=== PATIENT | male | born 1935 | race Caucasian/White ===

== ENCOUNTER 2016-11-29 13:46 | Inpatient (IN) ==
[2016-11-29] MEDS ORDERED: Naloxone 0.4 MG/ML INJ IVP PRN (20:56)
[2016-11-29] MEDS ORDERED: Ondansetron 4 MG/2 ML VIAL IVP PRN (20:56)
[2016-11-29] MEDS ORDERED: Acetaminophen 325 MG TABLET PO PRN (20:56)
[2016-11-29] MEDS ORDERED: Famotidine 20 MG TABLET PO SCH (21:00)
[2016-11-29 21:46] LABS: Basophils % 0.2 %; Hemoglobin 8.2 g/dL (12.9-16.9); Immature Granulocytes % 0.2 % (0-4); Mean Corpuscular Volume 100.4 fL (83.0-100.0)
[2016-11-29 21:48] LABS: Eosinophils # 0.1 K/mcL (0.0-0.6); Eosinophils % 2.4 %; Hematocrit 24.4 % (37.5-50.1); INR 1.3; Immature Platelets 7.4 % (1.1-6.1); Lymphocytes # 1.1 K/mcL (0.6-4.6); Lymphocytes % 26.3 %; Mean Corpuscular HGB Conc 33.6 g/dL (31.6-35.5); Mean Corpuscular Hemoglobin 33.7 pg (28.0-33.3); Monocytes # 0.3 K/mcL (0.0-1.3); Neutrophils # 2.7 K/mcL (1.6-8.9); Prothrombin Time 14.1 Seconds (9.4-12.1); Red Blood Count 2.43 M/mcL (4.19-5.50); Red Cell Distribution Width 23.6 % (11.5-14.5); Segmented Neutrophils % 64.9 %
[2016-11-29 21:50] LABS: Activated Partial Thrombo Time 28.7 Seconds (26.0-36.0)
[2016-11-29 21:58] LABS: Alanine Aminotransferase 18 Units/L (0-55); Albumin 3.9 g/dL (3.5-5.0); Albumin/Globulin Ratio 1.4 (1.1-2.2); Alkaline Phosphatase 65 Units/L (38-126); Aspartate Amino Transferase 22 Units/L (5-34); BUN/Creatinine Ratio 19 (6-26); Bilirubin,Total 1.7 mg/dL (0.2-1.2); Blood Urea Nitrogen 18 mg/dL (8-26); Calcium 9.1 mg/dL (8.6-10.8); Carbon Dioxide 22 mEq/L (19-29); Chloride 110 mEq/L (98-109); Globulin 2.8 g/dL (2.4-3.5); Glucose 101 mg/dL (70-99); Osmolality,Calculated 290 (280-300); Potassium 3.9 mEq/L (3.5-4.5); Sodium 139 mEq/L (136-145); Total Protein 6.7 g/dL (6.0-8.3); eGFR For African Americans > 60 (> 60); eGFR For Non-African Americans > 60 (> 60)
--- NOTE | 2016-11-29 22:24 | Internal Med History&Physical ---
Date of Encounter: 11/29/16 Time of Encounter: 20:00 Assessment and Plan (1) Pancytopenia Current visit: No Status: Acute 1. Will check labs, type and cross blood, and plan to transfuse platelets in the morning. 2. I consulted and spoke with Dr. Kidd (Hem/ONC) who will see patient in the morning. She requested platelet transfusion in the morning in preparation for bone marrow biopsy. 3. Will follow labs and transfuse otherwise if necessary. 4. Will check B12 and Folate levels. (2) Hypertension Current visit: No Status: Chronic 1. Continue home meds as appropriate and monitor BP. Qualifiers: Hypertension type: essential hypertension Qualified Code(s): I10 - Essential (primary) hypertension (3) DVT prophylaxis Current visit: Yes Status: Acute 1. EPCD's. 2. No anticoagulation due to thrombocytopenia and bleeding risk. Internal Medicine - H&P: HPI Chief complaint: symptomatic anemia; transfer from [place] Admitted From: Direct Admit Plans for Post Hospital Care: Home History of present illness: Mr. Mclean is a 81 year old male who was transferred here from [facility] today for hematology consultation. He presented there last night with complaints of symptomatic anemia. He was short of breath, lightheaded, and dizzy. He received 2 units packed red blood cell transfusion with subsequent improvement. He has a history of macrocytic anemia for several years, but it has worsened significantly in the last few weeks. He has not had any B12 or folate deficiency in the past. He has been using Ibuprofen 600 mg BID for the last few weeks for plantar fasciitis. He has had no GI blood loss. He had colonoscopy several years ago which was reportedly normal. He denies any abnormal bruising, bleeding, or rashes. 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 His most recent labs last week revealed the severe anemia and thrombocytopenia (6.8 and 18K respectively) whereas his baseline hgb has been around 10 and platelet count around 80-100K. Past Med Surg Social Fam HX - Past Medical History Attestation: Yes The following information was validated with the patient. 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) Psychiatric history: no psych history - Past Surgical History Surgical History: cancer surgery (skin cancers removed), orthopedic, other ( right shoulder) - Social History Smoking Status: Never smoker Smokeless Tobacco Status: No Alcohol use: none Drug use: none Occupational status: retired (physician) Current living situation: Home, With Family Activity Level: Independent ambulation, Very active Recent Out of Country Travel Within the Last 8 Weeks: No - Family History Father Hx Family Respiratory Disorders: Yes Hx Family Cancer: Yes - Additional Family History Additional family history: no history of luekemia, folate, or B12 deficiency. Internal Medicine - H&P: Meds Doxycycline Monohydrate [Mondoxyne Nl] 50 mg PO DAILY 11/29/16 [History] Lisinopril [Zestril] 20 mg PO DAILY 11/29/16 [History] Lutein 10 mg PO DAILY 11/29/16 [History] Multivitamin-Min/Iron/FA/Vit K [Multi-Day Plus Minerals Tablet] 1 each PO DAILY 11/29/16 [History] Ranitidine HCl [Zantac] 150 mg PO BID 11/29/16 [History] Allergies No Known Allergies Allergy (Verified 11/28/16 11:59) - Constitutional Constitutional: weakness, no chills, no fever(s), no night sweats - EENT Eyes: diplopia (chronic ), no blurry vision, no change in vision Ears: no ear pain, no tinnitus Nose, mouth and throat: no nasal congestion, no nasal discharge, no sinus pressure, no sore throat - Cardiovascular Cardiovascular ROS IM: dyspnea, dyspnea on exertion, lightheadedness, palpitations, no chest pain, no syncope - Respiratory Respiratory: dyspnea, dyspnea on exertion, no cough, no hemoptysis, no wheezing , no chest congestion, no excessive phlegm production, no change in phlegm color - Gastrointestinal Gastrointestinal: heartburn, no abdominal pain, no diarrhea, no hematemesis, no hematochezia, no melena, no nausea, no vomiting - Genitourinary Genitourinary ROS male: no dysuria, no flank pain, no hematuria - Musculoskeletal Musculoskeletal ROS IM: arthralgias, no back pain - Integumentary Integumentary IM: no rash, no jaundice - Neurological Neurological ROS: dizziness, weakness, no focal weakness, no frequent falls, no headache(s) - Psychiatric Psychiatric: no anxiety, no depression - Endocrine Endocrine IM: no polydipsia, no polyuria - Hematologic/Lymphatic Hematologic/Lymphatic: no easy bleeding, no easy bruising, no lymphadenopathy - Allergic/Immunologic Allergic/Immunologic: no wheezing, no GI upset with certain foods - Constitutional Vitals: Temp Pulse Resp BP Pulse Ox 98.3 F 76 15 177/79 96 11/29/16 18:05 11/29/16 18:05 11/29/16 18:05 11/29/16 18:05 11/29/16 18:05 General appearance: Present: cooperative, A&O X 3, pleasant, no acute distress, answers questions appropriately - Head Head exam: Present: atraumatic, normal inspection - Eye Eye exam: Present: EOMI, normal appearance, PERRL. Absent: scleral icterus Pupils: Present: normal accommodation - ENT ENT exam: Present: mucous membranes moist, normal exam, normal oropharynx - Neck Neck exam general surgery: Present: full ROM, normal inspection, supple. Absent : lymphadenopathy, tenderness, thyromegaly - Expanded Neck Exam Neck exam: Absent: carotid bruit - Respiratory Respiratory exam: Present: CTAB. Absent: chest wall tenderness, rales, respiratory distress, rhonchi, wheezes - Cardiovascular Cardiovascular exam: Present: RRR, +S1, +S2, systolic murmur (grade 1 systolic) . Absent: diastolic murmur, irregular rhythm, JVD - GI/Abdominal GI/Abdominal exam: Present: normal bowel sounds, soft. Absent: guarding, hepatomegaly, mass, rebound, splenomegaly, tenderness - Extremities Exam Extremities exam: Present: full ROM, normal capillary refill, warm. Absent: calf tenderness, joint swelling, pedal edema - Back Exam Back exam: Absent: CVA tenderness (L), CVA tenderness (R) - Neurological Exam Neurological exam: Present: alert, CN II-XII intact, oriented X3, no focal deficits - Psychiatric Psychiatric exam: Present: normal affect, normal mood - Skin Skin exam: Present: dry, warm. Absent: petechiae, rash Internal Med - H&P Results - Labs CBC & Chem 7: 11/29/16 21:35 Labs: BMP 11/29/16 21:35 Sodium 139 Potassium 3.9 Chloride 110 H Carbon Dioxide 22 BUN 18 Creatinine 0.93 Glucose 101 H Calcium 9.1 Liver Function 07/12/17 Range/Units 21:35 Total Bilirubin 1.7 H (0.2-1.2) mg/dL AST 22 (5-34) Units/L ALT 18 (0-55) Units/L Alkaline Phosphatase 65 (38-126) Units/L Albumin 3.9 (3.5-5.0) g/dL
[2016-11-29 22:26] LABS: Platelet Count 17 K/mcL (140-400)
[2016-11-29 22:30] LABS: Anisocytosis 2+ (Not Present); Macrocytosis Present (Not Present); Microcytosis Present (Not Present); Platelet Estimate Marked Decrease (Normal)
[2016-11-29 22:31] LABS: Folate 16.7 ng/mL (7.0-31.4)
[2016-11-30 06:35] LABS: Basophils % 0.3 %
[2016-11-30 06:37] LABS: Eosinophils # 0.2 K/mcL (0.0-0.6); Eosinophils % 4.9 %; Hematocrit 22.4 % (37.5-50.1); Hemoglobin 7.4 g/dL (12.9-16.9); Immature Granulocytes % 0.3 % (0-4); Immature Platelets 7.6 % (1.1-6.1); Lymphocytes # 1.4 K/mcL (0.6-4.6); Lymphocytes % 37.9 %; Monocytes # 0.2 K/mcL (0.0-1.3); Monocytes % 5.7 %; Neutrophils # 1.9 K/mcL (1.6-8.9); Nucleated Red Blood Cells 1.4 /100 WBC (0); Red Blood Count 2.24 M/mcL (4.19-5.50); Red Cell Distribution Width 22.8 % (11.5-14.5); Segmented Neutrophils % 50.9 %
[2016-11-30 07:12] LABS: Alanine Aminotransferase 17 Units/L (0-55); Albumin 3.5 g/dL (3.5-5.0); Albumin/Globulin Ratio 1.5 (1.1-2.2); Alkaline Phosphatase 58 Units/L (38-126); Aspartate Amino Transferase 21 Units/L (5-34); BUN/Creatinine Ratio 19 (6-26); Bilirubin,Total 1.5 mg/dL (0.2-1.2); Blood Urea Nitrogen 17 mg/dL (8-26); Calcium 8.7 mg/dL (8.6-10.8); Carbon Dioxide 24 mEq/L (19-29); Chloride 110 mEq/L (98-109); Globulin 2.4 g/dL (2.4-3.5); Glucose 91 mg/dL (70-99); Osmolality,Calculated 289 (280-300); Potassium 3.8 mEq/L (3.5-4.5); Sodium 139 mEq/L (136-145); Total Protein 5.9 g/dL (6.0-8.3); eGFR For African Americans > 60 (> 60); eGFR For Non-African Americans > 60 (> 60)
[2016-11-30 07:55] LABS: Platelet Count 16 K/mcL (140-400)
[2016-11-30] MEDS: Famotidine 20 MG TABLET PO SCH (08:30)
--- NOTE | 2016-11-30 09:12 | Internal Med Progress Note ---
Date of Encounter: 11/30/16 Time of Encounter: 09:09 - Assessment and plan (1) Symptomatic anemia Current Visit: Yes Status: Acute Assessment and plan: His anemia mostly due to Pancytopenia possibly due to Leukemia vs MDS s/p 2 U PRBC symptoms improved stable Hb @ 7.5 Cont tele cont close monitoring no signs of active bleeding (2) Pancytopenia Current Visit: No Status: Acute Assessment and plan: possibly due to MDS / Leukemia Heme Onc on board IR consulted for Bone marrow biopsy (3) Thrombocytopenia Current Visit: No Status: Acute Assessment and plan: transfuse 1 U Platelets now and 1 U during bone marrow biopsy (4) Hypertension Current Visit: No Status: Chronic Assessment and plan: Stable no need of medications now Qualifiers: Hypertension type: essential hypertension Qualified Code(s): I10 - Essential (primary) hypertension (5) DVT prophylaxis Current Visit: Yes Status: Acute Assessment and plan: SCD's only - Subjective Interval history: Mr. Mclean is a 81 year old male who was transferred here from [facility] y/d for hematology consultation. He presented there last night with complaints of symptomatic anemia and abnormal blood test results ( pancytopenia ) found on routine blood work from [place]. He was short of breath, lightheaded, and dizzy from last 3-4 weeks. He received 2 units packed red blood cell transfusion with subsequent improvement. He has a history of macrocytic anemia for several years, but it has worsened significantly in the last few weeks. He has not had any B12 or folate deficiency in the past. Denied any [place]. He has had no GI blood loss. He had colonoscopy several years ago which was reportedly normal. He denies any abnormal bruising, bleeding, or rashes. 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 His most recent labs last week revealed the severe anemia and thrombocytopenia (6.8 and 18K respectively) whereas his baseline hgb has been around 10 and platelet count around 80-100K. - Constitutional Vitals: Temp Pulse Resp BP Pulse Ox 98.5 F 63 18 129/67 97 11/30/16 06:21 11/30/16 06:21 11/30/16 06:21 11/30/16 06:21 11/30/16 06:21 General appearance: Present: cooperative, A&O X 3, pleasant, no acute distress, answers questions appropriately - Respiratory Respiratory exam: Present: CTAB. Absent: accessory muscle use, rales, rhonchi, wheezes - Cardiovascular Cardiovascular exam: Present: RRR, +S1, +S2. Absent: diastolic murmur, gallop, rubs, systolic murmur - GI/Abdominal GI/Abdominal exam: Present: normal bowel sounds, soft, no peritoneal signs. Absent: distended, tenderness - Extremities Exam Extremities exam: Present: normal capillary refill. Absent: calf tenderness, pedal edema - Skin Skin exam: Present: dry. Absent: rash Internal Medicine: Result - Labs CBC & Chem 7: 11/30/16 05:25 11/30/16 05:25 Labs: Short CBC 11/29/16 11/30/16 Range/Units 21:35 05:25 WBC 4.1 L 3.7 L (4.3-11.1) K/mcL Hgb 8.2 L 7.4 L (12.9-16.9) g/dL Hct 24.4 L 22.4 L (37.5-50.1) % Plt Count 17 L* 16 L* (140-400) K/mcL Neutrophils # 2.7 1.9 (1.6-8.9) K/mcL BMP 11/29/16 11/30/16 21:35 05:25 Sodium 139 139 Potassium 3.9 3.8 Chloride 110 H 110 H Carbon Dioxide 22 24 BUN 18 17 Creatinine 0.93 0.88 Glucose 101 H 91 Calcium 9.1 8.7 Liver Function 11/29/16 11/30/16 Range/Units 21:35 05:25 Total Bilirubin 1.7 H 1.5 H (0.2-1.2) mg/dL AST 22 21 (5-34) Units/L ALT 18 17 (0-55) Units/L Alkaline Phosphatase 65 58 (38-126) Units/L Albumin 3.9 3.5 (3.5-5.0) g/dL - ABG Interpretation ABG results: PT/INR, D-dimer PT 14.1 Seconds (9.4-12.1) H 11/29/16 21:35 Consult Discharge Plan - Plan Referrals: Flynn Louie DO [Primary Care Provider] -
[2016-11-30] MEDS ORDERED: 0.9 % Sodium Chloride 250 ML ONE (11:51)
--- NOTE | 2016-11-30 12:55 | Oncology Inp Consult Note ---
Date of Encounter: 11/30/16 Time of Encounter: 12:00 Assessment and Plan (1) Thrombocytopenia Status: Acute Assessment and plan: PAtient with severe thrombocytopenia/ anemia, s/p PRBC transfusion, wo hx active bleeding. Transfuse plt today for IR to obtain BM biopsy--to r/o MDS/AML. Other correctable causes of anemia-labs obtained. Procedure risk benefits d/w him in detail. Treatment with hypomethylating agents briefly reviewed if bx shows evidence of MDS/AML (other than APL). He does not want to go to [place] to consider clinical trials. Pl transfuse plt for symptomatic bleeding/keep over 15k, Hgb >7gm Plan d/w patient and his . 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 He had regular lab works through the [place] which had shown a baseline hemoglobin around 10 g and platelets 80,000 200, 000 per records. He is hospitalized with complaints of symptomatic anemia, hemoglobin was noted to be in 6gm range, platelet 31,000. He has not had any gross bleeding epistaxis or easy bruisability. She had noted worsening of shortness of breath, fatigue, denies any chest pain dizziness or falls. He denies any new bony aches/pain. He has had a colonoscopy in the past which was normal. Patient transferred here for further evaluation, transfusion support. A 14 point review of systems is as noted above otherwise negative. Past Med Surg Social Fam HX - Past Medical History Medical history: GERD, hypertension, other (h/o basal cell and squamous cell skin cancers -- surgically removed) Psychiatric history: no psych history - Past Surgical History Surgical History: cancer surgery (skin cancers removed), orthopedic, other ( right shoulder) - Social History Smoking Status: Never smoker Smokeless Tobacco Status: No Alcohol use: none Drug use: none - Family History Father Hx Family Respiratory Disorders: Yes Hx Family Cancer: Yes Medications and Allergies Doxycycline Monohydrate [Mondoxyne Nl] 50 mg PO DAILY 11/29/16 [History] Lisinopril [Zestril] 20 mg PO DAILY 11/29/16 [History] Lutein 10 mg PO DAILY 11/29/16 [History] Multivitamin-Min/Iron/FA/Vit K [Multi-Day Plus Minerals Tablet] 1 each PO DAILY 11/29/16 [History] Ranitidine HCl [Zantac] 150 mg PO BID 11/29/16 [History] Allergies No Known Allergies Allergy (Verified 11/28/16 11:59) Review of systems: as in HPI Oncology - Exam - Constitutional Vitals: Temp Pulse Resp BP Pulse Ox 98.0 F 65 15 152/64 97 11/30/16 12:13 11/30/16 12:13 11/30/16 12:13 11/30/16 12:13 11/30/16 10:48 General appearance: average body habitus - Head Head exam: Present: atraumatic, normal inspection - Eye Eye exam: Present: sclera anicteric - ENT ENT exam: Present: mucous membranes moist - Neck Neck exam: Present: full ROM, normal inspection - Respiratory Respiratory exam: Present: CTAB - Cardiovascular Cardiovascular exam: Present: +S1, +S2 - GI/Abdominal GI/Abdominal exam: Present: normal bowel sounds, soft - Extremities Exam Extremities exam: Present: normal capillary refill, normal inspection - Neurological Exam Neurological exam: Present: alert, CN II-XII intact, oriented X3 - Psychiatric Psychiatric exam: Present: normal affect - Skin Skin exam: Present: normal color Oncology - Results - Labs Labs: Short CBC 11/29/16 11/30/16 Range/Units 21:35 05:25 WBC 4.1 L 3.7 L (4.3-11.1) K/mcL Hgb 8.2 L 7.4 L (12.9-16.9) g/dL Hct 24.4 L 22.4 L (37.5-50.1) % Plt Count 17 L* 16 L* (140-400) K/mcL Neutrophils # 2.7 1.9 (1.6-8.9) K/mcL BMP 11/29/16 11/30/16 21:35 05:25 Sodium 139 139 Potassium 3.9 3.8 Chloride 110 H 110 H Carbon Dioxide 22 24 BUN 18 17 Creatinine 0.93 0.88 Glucose 101 H 91 Calcium 9.1 8.7 Liver Function 11/29/16 11/30/16 Range/Units 21:35 05:25 Total Bilirubin 1.7 H 1.5 H (0.2-1.2) mg/dL AST 22 21 (5-34) Units/L ALT 18 17 (0-55) Units/L Alkaline Phosphatase 65 58 (38-126) Units/L Albumin 3.9 3.5 (3.5-5.0) g/dL Consult Discharge Plan - Plan Referrals: Flynn Louie DO [Primary Care Provider] - 12/07/16 12:30 pm
[2016-12-01 04:39] LABS: Basophils % 0.3 %; Hemoglobin 7.5 g/dL (12.9-16.9); Red Cell Distribution Width 22.5 % (11.5-14.5)
[2016-12-01 04:42] LABS: Eosinophils # 0.2 K/mcL (0.0-0.6); Eosinophils % 5.2 %; Hematocrit 22.1 % (37.5-50.1); Immature Platelets 3.7 % (1.1-6.1); Lymphocytes # 1.3 K/mcL (0.6-4.6); Lymphocytes % 35.7 %; Mean Corpuscular HGB Conc 33.9 g/dL (31.6-35.5); Mean Corpuscular Hemoglobin 34.4 pg (28.0-33.3); Mean Corpuscular Volume 101.4 fL (83.0-100.0); Mean Platelet Volume 11.7 fL (9.4-12.4); Monocytes # 0.3 K/mcL (0.0-1.3); Monocytes % 7.1 %; Neutrophils # 1.9 K/mcL (1.6-8.9); Nucleated Red Blood Cells 0.8 /100 WBC (0); Red Blood Count 2.18 M/mcL (4.19-5.50); Segmented Neutrophils % 51.7 %
[2016-12-01 04:52] LABS: BUN/Creatinine Ratio 22 (6-26); Blood Urea Nitrogen 19 mg/dL (8-26); Calcium 8.7 mg/dL (8.6-10.8); Carbon Dioxide 28 mEq/L (19-29); Chloride 109 mEq/L (98-109); Glucose 93 mg/dL (70-99); Magnesium 1.9 mg/dL (1.6-2.6); Osmolality,Calculated 292 (280-300); Potassium 3.7 mEq/L (3.5-4.5); Sodium 140 mEq/L (136-145); eGFR For African Americans > 60 (> 60); eGFR For Non-African Americans > 60 (> 60)
[2016-12-01 05:01] LABS: Platelet Count 41 K/mcL (140-400)
[2016-12-01 05:53] LABS: Platelet Estimate Decreased (Normal)
[2016-12-01 05:54] LABS: Anisocytosis 3+ (Not Present)
[2016-12-01] MEDS: Famotidine 20 MG TABLET PO SCH ×2 (07:39→10:23)
[2016-12-01] MEDS ORDERED: *HR* FentaNYL (PF) 100 MCG/2 ML VIAL IVP PRN (08:28)
[2016-12-01] MEDS ORDERED: *HR* Midazolam HCl 2 MG/2 ML VIAL IVP PRN (08:28)
[2016-12-01] MEDS ORDERED: 0.9 % Sodium Chloride Mini Bag 100 ML ONE (08:42)
--- NOTE | 2016-12-01 09:12 | Pre-Sedation Evaluation ---
Pre-sedation evaluation - Pre-sedation checklist Date of procedure: 12/01/16 Procedure: Bone marrow asp/bx Recent Vitals: Last Vital Signs Temp 98 F 12/01/16 07:33 Pulse 65 12/01/16 07:33 Resp 14 12/01/16 05:08 BP 164/69 12/01/16 07:33 Pulse Ox 95 12/01/16 07:33 Dietary Status: NPO after Midnight ASA Classification *see protocol: CLASS III-Severe systemic disease Plan of Care: Pt appropriate candidate for procedure/moderate/conscious sedation , Risks/benefits of procedure/sedation discussed w/ patient/family
[2016-12-01] MEDS ORDERED: 0.9 % Sodium Chloride 500 ML ONE (09:19)
--- NOTE | 2016-12-01 09:44 | IR Procedure Note ---
Date of procedure: 12/01/16 Consent Obtained: Written consent Timeout: Correct patient and procedure verified, Time out performed, Skin prep completed Local anesthetic: Lidocaine 1% Indications: Pancytopenia Procedure Performed: Bone marrow asp/bx Results/Findings: Sample to path Complications: None; Tolerated procedure well (Monitor on floor)
[2016-12-01] MEDS ORDERED: 0.9 % Sodium Chloride 1,000 ML IVC SCH (10:30)
[2016-12-01] MEDS ORDERED: 0.9 % Sodium Chloride 500 ML IVC ONE (10:40)
[2016-12-01 14:36] VITALS: BP 114/62
--- NOTE | 2016-12-01 15:17 | Discharge Summary ---
Date of Encounter: 12/01/16 Time of Encounter: 15:09 - Discharge Diagnosis (1) Symptomatic anemia Priority: Primary Status: Acute (2) Pancytopenia Priority: Primary Status: Acute (3) Thrombocytopenia Priority: Primary Status: Acute (4) Hypertension Priority: Secondary Status: Chronic Qualifiers: Hypertension type: essential hypertension Qualified Code(s): I10 - Essential (primary) hypertension - Discharge Medications Home Medications: Doxycycline Monohydrate [Mondoxyne Nl] 50 mg PO DAILY 11/29/16 [History] Lisinopril [Zestril] 20 mg PO DAILY 11/29/16 [History] Lutein 10 mg PO DAILY 11/29/16 [History] Multivitamin-Min/Iron/FA/Vit K [Multi-Day Plus Minerals Tablet] 1 each PO DAILY 11/29/16 [History] Ranitidine HCl [Zantac] 150 mg PO BID 11/29/16 [History] Allergies/Adverse Reactions: Allergies No Known Allergies Allergy (Verified 11/28/16 11:59) Procedures/tests Complete & Pending: Procedures Performed prior 72 hours Category Date Time Status CT guided biopsy [CT] Routine Cat Scan 12/01/[address] biopsy bone marrow [CT] Routine Exams 12/01/16 Completed Date of admission: 11/30/16 11:33 Primary care physician: Flynn Louie DO Consults: 11/29/16 20:59 Consult to Physician [CONS] Routine Consulting Provider: David Hannon Reason for Consult: pancytopenia Time Notified: 21:00 Call Completed: Yes 11/30/16 09:19 Consult to Interventional Radiology [CONS] Stat Consulting Provider: Radiology Interventional Cols Reason for Consult: Bone marrow biopsy Call Completed: Yes Anticipated date of discharge: 12/01/16 - Patient Status Disposition: Home, Self-Care Overall status at discharge: patient is back to baseline - Discharge Instructions Follow Up With: Flynn Louie DO [Primary Care Provider] - 12/07/16 11:30 am David Hannon MD [Partnered Physician] - Hospital course: 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 He was transferred here from [facility] 2 days ago for hematology consultation. He presented there with complaints of symptomatic anemia and thrombocytopenia (hb 6.8 and 18K respectively) ( pancytopenia ) found on routine blood work from [place]. He was short of breath, lightheaded, and dizzy from last 3-4 weeks. He received 2 units packed red blood cell transfusion with subsequent improvement. He was evaluated by oncologist Dr. Motta. 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 He did received 2 U of platelets and went for bone marrow biopsy this morning. Now he is resting comfortably in his vitals are stable. We will discharge him home today in stable condition. Recommend to follow up with the oncologist to discuss about the bone marrow biopsy results in one week. - Time Spent with Patient Total time spent providing and/or coordinating discharge services: - Constitutional Vitals: Temp Pulse Resp BP Pulse Ox 98 F 60 16 114/62 97 12/01/16 14:35 12/01/16 14:35 12/01/16 14:35 12/01/16 14:35 12/01/16 12:07 General appearance: Present: cooperative, A&O X 3, pleasant, no acute distress, answers questions appropriately - Respiratory Respiratory exam: Present: CTAB. Absent: accessory muscle use, rales, rhonchi, wheezes - Cardiovascular Cardiovascular exam: Present: RRR, +S1, +S2. Absent: diastolic murmur, gallop, rubs, systolic murmur - GI/Abdominal GI/Abdominal exam: Present: soft. Absent: firm, guarding, tenderness - Back Exam Additional comments: no hematoma / swelling over the bne marrow biopsy site over Rt iliac crest region - Psychiatric Psychiatric exam: Present: normal affect, normal mood
== END 2016-12-01 16:15 | disposition home or self-care (01) | DRG 812 ==
LOC: 3ANU
PROVIDERS: ADMIT Internal Medicine; ATTEND Family Medicine